=== PATIENT | male | born 2000 | race Caucasian/White ===

== ENCOUNTER 2022-02-15 10:23 | Emergency (ER) | payer SELFPAY ==
[~2022-02-15] VITALS: Ht 175.3 cm; Wt 118.4 kg
[2022-02-15 10:26] VITALS: BP 120/75
[2022-02-15] MEDS ORDERED: CEPH-588 PO (12:07)
[2022-02-15] MEDS ORDERED: HYD1C TP (12:07)
--- NOTE | 2022-02-15 12:13 | NUR ---
21 y/o male, c/o left upper arm pain in relation to bug bite from 3 days ago. pt states bump was smaller and has gotten bigger since then. area of bite is on ac area with some redness. denies nausea, vomiting, diarrhea. skin is pink/warm/dry. a&o x4 with even and steady gait. lungs clear bl, heart rate even and regular. pt denies any fever, cp, sob, or cough at this time. vss. ermd made aware of pt. pmh: asthma nka med: denies
[2022-02-15 12:22] VITALS: BP 120/75
--- NOTE | 2022-02-15 12:22 | NUR ---
Patient discharged with v/s stable. Written and verbal after care instructions ABOUT CELLULITIS given and explained. Patient alert, oriented and verbalized understanding of instructions. Ambulatory with steady gait. All questions addressed prior to discharge. ID band removed. Patient advised to follow up with PMD. Rx of HYDROCORSTISONE CREAM 1%, KEFLEX given. Patient educated on indication of medication including possible reaction and side effects. Opportunity to ask questions provided and answered.
== END 2022-02-15 12:22 | disposition home or self-care (01) ==
LOC: MED 10:23
DX: L03.114 Cellulitis of left upper limb (principal); J45.909 Unspecified asthma, uncomplicated
CPT/HCPCS: 99283